=== PATIENT | male | born 1945 | race Caucasian/White ===

== ENCOUNTER 2018-08-30 08:04 | Day surgery (SDC) | payer OTHER ==
[2018-08-29 16:52] LABS: Absolute Lymphocytes (CBC) 1.8 K/uL (0.7-4.9); Absolute Monocytes 0.6 K/uL (0.1-1.3); Absolute Neutrophil 5.5 K/uL (1.8-8.0); Basophils % 0.6 % (0-1.3); Eosinophils % 1.2 % (0-4.4); Hematocrit 43.4 % (39.6-49.0); Lymphocytes % 21.7 % (15.3-44.8); MPV 9.2 fL (7.6-11.3); RBC Red Blood Cell Count 4.89 M/uL (4.33-5.43)
--- NOTE | 2018-08-29 16:52 | RAD REPORT ---
EXAM DESCRIPTION: Taras Severino And Darnell (2 Views)08/29/2018 4:36 pm CLINICAL HISTORY: Hypertension preop for catheterization coronary arteries COMPARISON: 2012 FINDINGS: The lungs appear clear of acute infiltrate. The heart is mildly enlarged. Prominent opacity overlies the right mid lateral hemithorax IMPRESSION: Prominent opacity overlying the right mid lateral right hemithorax may represent benign pleural thickening or pleural mass. CT chest recommended
[2018-08-29 16:55] LABS: Protime INR 1.09
[2018-08-29 17:06] LABS: Potassium 4.3 mmol/L (3.5-5.1)
[2018-08-30] MEDS ORDERED: NA CHLORIDE 0.9% 500 ML ONE (08:51)
[2018-08-30] MEDS ORDERED: HEPA 1000U/500MLS 1,000 UNIT/500 ML BAG IV ONE (10:41)
[2018-08-30] MEDS ORDERED: LIDOCAINE 1% MPF 30 ML VIAL ONE (10:41)
[2018-08-30] MEDS ORDERED: MIDAZOLAM HCL 2 MG/2 ML INJ ONE ×2 (10:46→10:55)
[2018-08-30] MEDS ORDERED: NA CHLORIDE 0.9% 50 ML ONE (10:46)
[2018-08-30] MEDS ORDERED: ATROPINE SULF 1 MG/10 ML SYR IV ONE (10:46)
[2018-08-30] MEDS ORDERED: FENTANYL CITR 100 MCG/2 ML ONE (10:46)
[2018-08-30] MEDS ORDERED: ASPIRIN 325 MG TAB ONE (11:39)
[2018-08-30] MEDS ORDERED: PRASUGREL (EFFIENT) 10 MG TAB ONE (11:40)
[2018-08-30] MEDS ORDERED: NITROGLYCERIN 0.4 MG/TAB SL PRN (13:00)
[2018-08-30] MEDS ORDERED: NA CHLORIDE 0.9% 1,000 ML IV SCH (13:00)
[2018-08-30] MEDS ORDERED: ACETAMINOPHEN 325 MG TABLET PO PRN (13:00)
[2018-08-30 15:16] VITALS: BMI 30.6
--- NOTE | 2018-08-30 18:44 | OP ---
Date of Procedure: 08/30/2018 Surgeon: Chang Fenton MD Splicer Operator: Ms. Olmedo and Tobias Archibald. Admitted to my service as an outpatient on 08/30/2018. Procedures: Left heart catheterization, selective coronary arteriogram, and primary stent of the lef t anterior descending. Indications: Coronary artery disease, unstable angina, and positive stress test. Procedure In Detail: Mr. Cortes is 73, known to have at least an LAD stent twice in the past, 1 follo wing a myocardial infarction and 1 for restenosis. Has been having chest pain, positive stress test, admitted today to the labor contract analyst as an outpatient. He was prepped and draped in the routine sterile f ashion, given 4 mg of Versed for sedation. Right common femoral artery accessed with a 6-[place]ovenian sheikh th. Angio-Seal was used to close the case. Angiography there was normal. Left and right coronary a ngiography was done using Roger catheter. He has a small nondominant RCA with some plaques. The c ircumflex has some diffuse plaquing. He had a 90% stenosis at the beginning of the previous proximal LAD stent, and 70% proximal LAD stent other than that 1 lesion. An XB 3.5 with side hole guide was used. A [place] wire was used to cross the lesion. A primary 2.5 x 16 Synergy stent was placed at 11 atmosphere with 0% residuals. The patient tolerated the procedure well. There were no complication s. Blood Loss: 5 cc. Anesthesia: Total conscious sedation was 45 minutes. Final Diagnosis: Coronary artery disease status post primary stent of an in-stent restenosis in the left anterior descending. Disposition: The patient received Angiomax, aspirin, and Effient during the procedure. He will stay overnight, and I will see him in the office in 2 weeks. ELSA/REGLA Voice ID: [id number] Report ID: [id number]
[2018-08-30] MEDS ORDERED: ZOLPIDEM TARTRATE 5 MG TABLET PO PRN (20:04)
[2018-08-30] MEDS ORDERED: ATORVASTATIN 40 MG TAB PO SCH (21:00)
[2018-08-31 05:54] LABS: Absolute Lymphocytes (CBC) 1.5 K/uL (0.7-4.9); Absolute Monocytes 0.5 K/uL (0.1-1.3); Absolute Neutrophil 5.4 K/uL (1.8-8.0); Basophils % 0.5 % (0-1.3); Eosinophils % 1.3 % (0-4.4); Lymphocytes % 19.8 % (15.3-44.8); MPV 9.1 fL (7.6-11.3); Monocytes % 7.1 % (3.3-12.3); RBC Red Blood Cell Count 4.73 M/uL (4.33-5.43)
[2018-08-31 06:09] LABS: Potassium 5.1 mmol/L (3.5-5.1)
[2018-08-31 07:52] VITALS: BP 131/74; TEMP 96.4
[2018-08-31] MEDS ORDERED: METFORMIN ER 500 MG TAB PO SCH (08:00)
[2018-08-31 08:39] VITALS: O2SAT 96
[2018-08-31] MEDS ORDERED: ASPIRIN 81 MG CHEWABLE TABLET PO SCH (09:00)
[2018-08-31] MEDS ORDERED: CLOPIDOGREL 75 MG TABLET PO SCH (09:00)
[2018-08-31] MEDS ORDERED: RANITIDINE 150 MG TABLET PO SCH (09:00)
--- NOTE | 2018-08-31 10:26 | EKG ---
Test Date: 2018-08-31 Test Time: 07:50:14 Mail Forwarding System Markup Clerk: CLAUDIA MEASUREMENT RESULTS: Intervals: Rate: 80 MS: 192 QRSD: 104 QT: 386 QTc: 445 [place]: P: 48 MS: 192 QRS: 78 T: 71 INTERPRETIVE STATEMENTS: Normal sinus rhythm Cannot rule out Anteroseptal infarct, age undetermined Abnormal ECG Compared to ECG 06/12/2016 07:38:30 No significant changes Electronically Signed On 08-31-18 10:24:56 CDT by Guanaco Saleem
[2018-08-31] MEDS ORDERED: ATORVASTATIN 40 MG TAB PO SCH (21:00)
[2018-09-02] MEDS ORDERED: LISINOPRIL 10 MG TAB PO SCH (21:00)
== END 2018-08-31 09:35 | disposition home or self-care (01) ==
LOC: CCL 08:04 → 4TH 12:14 → CCL 08-31 09:35
DX: I25.110 Atherosclerotic heart disease of native coronary artery with unstable angina pectoris (principal); I10 Essential (primary) hypertension; E78.6 Lipoprotein deficiency; E11.9 Type 2 diabetes mellitus without complications; K21.9 Gastro-esophageal reflux disease without esophagitis; Z83.3 Family history of diabetes mellitus; Z82.49 Family history of ischemic heart disease and other diseases of the circulatory system; Z79.82 Long term (current) use of aspirin; Z79.84 Long term (current) use of oral hypoglycemic drugs; Z79.899 Other long term (current) drug therapy
CPT/HCPCS: 93005; 85025 ×2; 80048 ×2; 36415 ×2; 85610; 80061; 82962 ×4; 85347 ×2; 85730; 71046; 93454; C1893; C1760; C1725; C1877; C9600; J2250 ×2; J3010; J0583